=== PATIENT | male | born 1955 | race Caucasian/White ===

== ENCOUNTER 2019-11-12 01:52 | Day surgery (SDC) | payer MEDICARE, OTHER, SELFPAY ==
[2019-11-10 10:19] VITALS: BMI 31.2
--- NOTE | 2019-11-11 17:28 | P.PNAN_ITS ---
Anes - Eval Pre Procedure Procedure: Operation Date: 11/12/19 07:30 Proposed Procedures p Screening Colonoscopy - Sharath Martinez MD Date/Time: 11/11/19 17:28 Pre Op Diagnosis: Family hx of Colon Cancer Patient Data Age: 64 Gender: M Height: 1.83 m Weight: 104.5 kg Allergies Allergy/AdvReac Type Severity Reaction Status Date / Time No Known Allergies Allergy Unverified 11/10/19 10:17 Home Medications Medication Instructions Recorded Confirmed Type aspirin 81 mg tablet,delayed 81 mg PO DAILY 10/14/19 11/10/19 History release amlodipine 10 mg-benazepril 40 mg 1 cap PO DAILY #90 cap 10/16/19 11/10/19 Rx capsule febuxostat 40 mg tablet 40 mg PO DAILY #90 tablet 10/16/19 11/10/19 Rx diclofenac sodium 75 mg PO BID 11/10/19 11/10/19 History tamsulosin 0.4 mg PO HS 11/10/19 11/10/19 History Patient hx anesthesia problems: none Family hx anesthesia problems: none PMFSH Past Medical History Medical History (Updated 11/11/19 @ 17:29 by Whit Vega CRNA) Elevated PSA Essential (primary) hypertension Gout Hypercholesteremia Hyperlipidemia LDL goal <130 Hypertension Obesity Osteoarthritis Other detention (current) drug therapy Surgical History Surgical History H/O cataract extraction History of hip replacement Hx of colonoscopy Hx of sinus surgery S/P lens implant Social History Social History Smoking status: Never smoker Alcohol intake: current Exam Day of Procedure 11/11/19 17:28
[2019-11-12 06:13] VITALS: BP 149/96; PULSE 84; RESP 20; TEMP 36.9; O2SAT 98
[2019-11-12] MEDS: LACTATED RINGERS 1,000 ML 150 ML IV CONT (06:17)
--- NOTE | 2019-11-12 06:33 | P.PNAN_ITS ---
Anes - Eval Final PreProcedure Day of Procedure 11/12/19 06:33 Patient weight: obese Heart: regular rate and rhythm Lungs: clear to auscultation Airway: Mallampati scale class II Neurological: alert and oriented Last oral intake: >/= 8 hours ASA classification: III Emergent: no Anesthetic plan: proceed Anesthesia type and monitoring: general GIVS and standard monitoring Informed Consent: The patient's anesthetic plan and its attendant risks and b enefits were discussed with the patient/family/POA. Questions were solicited and answers provided to the satisfaction of the patient/family/POA.
--- NOTE | 2019-11-12 07:59 | P.CONGI_ITS ---
Assessment and Plan Additional Plan This is a 64-year-old white male patient seen in evaluation at the request of Dr. Travis. Patient presents for screening colonoscopy. His current weight appetite bowel movements are normal. He denies any blood in his stools. He denies abdominal pain. His weight has remained stable. Family history is significant his father had colon cancer. Last colonoscopy 5 years ago was unremarkable. Past medical history is significant for hypertension. And arthritis. Medications include amlodipine. Diclofenac. Tamsulosin. Is no stated drug allergies. Physical exam reveals him to be alert. Oriented x3. HEENT exam unremarkable. Lungs are clear to auscultation and percussion. Heart is without murmur or extra sounds. Abdominal exam bowel sounds are present soft nontender with no organomegaly. Digital external rectal exam normal. Impression 1. Family history of colon cancer in father. Plan is for screening colonoscopy. He will consider this at 5 year intervals. GI Consult Note Consult date/time: 11/12/19 07:59 HPI: Bienvenido Arauz is a 64 year old male [facility] Past Medical History Medical History (Updated 11/11/19 @ 17:29 by Whit Vega CRNA) Elevated PSA Essential (primary) hypertension Gout Hypercholesteremia Hyperlipidemia LDL goal <130 Hypertension Obesity Osteoarthritis Other intermediate (current) drug therapy Surgical History Surgical History H/O cataract extraction History of hip replacement Hx of colonoscopy Hx of sinus surgery S/P lens implant Social History Social History Smoking status: Never smoker Alcohol intake: current Meds Home Medications and Allergies Home Medications Medication Instructions Recorded Confirmed Type aspirin 81 mg tablet,delayed 81 mg PO DAILY 10/14/19 11/10/19 History release amlodipine 10 mg-benazepril 40 mg 1 cap PO DAILY #90 cap 10/16/19 11/10/19 Rx capsule febuxostat 40 mg tablet 40 mg PO DAILY #90 tablet 10/16/19 11/10/19 Rx diclofenac sodium 75 mg PO BID 11/10/19 11/10/19 History tamsulosin 0.4 mg PO HS 11/10/19 11/10/19 History Allergies Allergy/AdvReac Type Severity Reaction Status Date / Time No Known Allergies Allergy Verified 11/12/19 06:10 Vital Signs Vital Signs - 24 hr 11/12/19 06:13 Temperature 36.9 C Pulse Rate 84 Respiratory Rate 20 Blood Pressure 149/96 H Pulse Oximetry 98
[2019-11-12 08:01] VITALS: BP 129/87; PULSE 74; RESP 22; O2SAT 100
[2019-11-12 08:11] VITALS: BP 132/86; PULSE 63; RESP 20; O2SAT 99
[2019-11-12 08:21] VITALS: BP 134/88; PULSE 66; RESP 18; O2SAT 98
== END 2019-11-12 08:45 | disposition home or self-care (01) ==
PROVIDERS: PCP Internal Medicine; Visit Provider Internal Medicine Gastroenterology
PROC: 0DJD8ZZ Inspection of Lower Intestinal Tract, Via Natural or Artificial Opening Endoscopic (ICD-10-PCS; CPT 45378; principal; 2019-11-12 07:30)
DX: Z12.11 Encounter for screening for malignant neoplasm of colon (principal); K57.30 Diverticulosis of large intestine without perforation or abscess without bleeding; K64.8 Other hemorrhoids; Z80.0 Family history of malignant neoplasm of digestive organs; I10 Essential (primary) hypertension; E78.5 Hyperlipidemia, unspecified; M10.9 Gout, unspecified; M19.90 Unspecified osteoarthritis, unspecified site; E66.9 Obesity, unspecified; Z68.30 Body mass index [BMI] 30.0-30.9, adult; Z79.82 Long term (current) use of aspirin
CPT/HCPCS: G0105; J2704; J7120

== ENCOUNTER 2019-11-26 06:34 | Outpatient (CLI) | payer MEDICARE, SELFPAY ==
[2019-11-26 08:25] LABS: Prostate Specific Antigen 3.4 ng/mL (< OR = 4.0)
== END 2019-11-26 06:35 | disposition home or self-care (01) ==
PROVIDERS: PCP Internal Medicine
DX: R97.20 Elevated prostate specific antigen [PSA] (principal)
CPT/HCPCS: 36415; 84153

== ENCOUNTER 2020-04-05 06:35 | Outpatient (CLI) | payer MEDICARE, OTHER, SELFPAY ==
[2020-04-05 07:24] LABS: Alanine Aminotransferase 54 U/L (4-50); Albumin Level 4.6 g/dL (3.5-5.1); Alkaline Phosphatase 67 U/L (38-126); Aspartate Amino Transferase 36 U/L (17-59); Bilirubin,Total 0.6 mg/dL (0.2-1.3); Blood Urea Nitrogen 19 mg/dL (9-20); Calcium 9.3 mg/dL (8.4-10.2); Carbon Dioxide 26 mmol/L (22-30); Chloride 104 mmol/L (98-107); Cholesterol 187 mg/dL (0-200); Estimated Glomerular Filt Rate > 60; Glucose 111 mg/dL (75-110); HDL Direct 50 mg/dL; Potassium 4.1 mmol/L (3.4-5.0); Sodium 137 mmol/L (137-145); Triglycerides 59 mg/dL (<150)
[2020-04-05 07:35] LABS: LDL Cholesterol Direct 107 mg/dL
[2020-04-05 09:21] LABS: Prostate Specific Antigen 4.9 ng/mL (< OR = 4.0)
== END 2020-04-05 06:36 | disposition home or self-care (01) ==
PROVIDERS: PCP Internal Medicine; Visit Provider Nurse Practitioner
DX: Z79.899 Other long term (current) drug therapy (principal); I10 Essential (primary) hypertension; R97.20 Elevated prostate specific antigen [PSA]
CPT/HCPCS: 36415; 80053; 80061; 84153

== ENCOUNTER 2020-09-29 09:24 | Outpatient (CLI) | payer MEDICARE, SELFPAY ==
[2020-09-29 10:12] LABS: Anion Gap 8 mmol/L (8-16); Blood Urea Nitrogen 21 mg/dL (9-20); Calcium 10.1 mg/dL (8.4-10.2); Carbon Dioxide 29 mmol/L (22-30); Chloride 104 mmol/L (98-107); Cholesterol 207 mg/dL (0-200); Estimated Glomerular Filt Rate > 60; Glucose 106 mg/dL (75-110); HDL Direct 64 mg/dL; Potassium 4.3 mmol/L (3.4-5.0); Sodium 141 mmol/L (137-145); Triglycerides 74 mg/dL (<150); Uric Acid 5.4 mg/dL (3.5-8.5)
[2020-09-29 10:23] LABS: LDL Cholesterol Direct 114 mg/dL
[2020-09-29 11:13] LABS: Prostate Specific Antigen 3.5 ng/mL (< OR = 4.0)
== END 2020-09-29 09:25 | disposition home or self-care (01) ==
PROVIDERS: PCP Internal Medicine; Visit Provider Internal Medicine
DX: M10.9 Gout, unspecified (principal); R97.20 Elevated prostate specific antigen [PSA]; I10 Essential (primary) hypertension; E78.5 Hyperlipidemia, unspecified
CPT/HCPCS: 36415; 80048; 80061; 84153; 84550

== ENCOUNTER 2020-12-29 06:37 | Outpatient (CLI) | payer MEDICARE, SELFPAY | END 2020-12-29 06:38 | disposition home or self-care (01) | PROVIDERS: PCP Internal Medicine | DX: R97.20 Elevated prostate specific antigen [PSA] (principal) | CPT/HCPCS: 36415; 84153 ==

== ENCOUNTER 2021-04-25 06:33 | Outpatient (CLI) | payer MEDICARE, OTHER, SELFPAY ==
[2021-04-25 07:30] LABS: Alanine Aminotransferase 41 U/L (4-50); Albumin Level 4.4 g/dL (3.5-5.1); Alkaline Phosphatase 61 U/L (38-126); Anion Gap 9 mmol/L (8-16); Aspartate Amino Transferase 27 U/L (17-59); Bilirubin,Total 0.7 mg/dL (0.2-1.3); Blood Urea Nitrogen 15 mg/dL (9-20); Calcium 9.4 mg/dL (8.4-10.2); Carbon Dioxide 23 mmol/L (22-30); Chloride 108 mmol/L (98-107); Cholesterol 197 mg/dL (0-200); Estimated Glomerular Filt Rate > 60; Glucose 110 mg/dL (65-110); HDL Direct 61 mg/dL; Potassium 4.4 mmol/L (3.4-5.0); Sodium 140 mmol/L (137-145); Triglycerides 75 mg/dL (<150)
[2021-04-25 07:41] LABS: LDL Cholesterol Direct 104 mg/dL
[2021-04-25 11:32] LABS: Prostate Specific Antigen 4.4 ng/mL (< OR = 4.0)
== END 2021-04-25 06:34 | disposition home or self-care (01) ==
PROVIDERS: PCP Internal Medicine; Visit Provider Nurse Practitioner
DX: E78.5 Hyperlipidemia, unspecified (principal); R97.20 Elevated prostate specific antigen [PSA]
CPT/HCPCS: 36415; 80053; 80061; 84153

== ENCOUNTER 2021-11-01 06:32 | Outpatient (CLI) | payer MEDICARE, OTHER, SELFPAY ==
[2021-11-01 08:23] LABS: Alanine Aminotransferase 38 U/L (4-50); Albumin Level 4.6 g/dL (3.5-5.1); Alkaline Phosphatase 59 U/L (38-126); Anion Gap 6 mmol/L (8-16); Aspartate Amino Transferase 25 U/L (17-59); Bilirubin,Total 0.7 mg/dL (0.2-1.3); Blood Urea Nitrogen 14 mg/dL (9-20); Calcium 9.6 mg/dL (8.4-10.2); Carbon Dioxide 27 mmol/L (22-30); Chloride 106 mmol/L (98-107); Cholesterol 202 mg/dL (0-200); Estimated Glomerular Filt Rate > 60; Glucose 109 mg/dL (65-110); HDL Direct 60 mg/dL; Potassium 4.2 mmol/L (3.4-5.0); Sodium 139 mmol/L (137-145); Triglycerides 86 mg/dL (<150)
[2021-11-01 08:34] LABS: LDL Cholesterol Direct 111 mg/dL
[2021-11-01 08:53] LABS: Prostate Specific Antigen 4.6 ng/mL (< OR = 4.0)
== END 2021-11-01 06:33 | disposition home or self-care (01) ==
LOC: ANHLAB 06:36
PROVIDERS: PCP Internal Medicine; Visit Provider Internal Medicine
DX: R97.20 Elevated prostate specific antigen [PSA] (principal); I10 Essential (primary) hypertension; Z79.899 Other long term (current) drug therapy; E78.5 Hyperlipidemia, unspecified; M10.9 Gout, unspecified
CPT/HCPCS: 36415; 80053; 80061; 84153; 84550

== ENCOUNTER 2022-04-26 09:50 | Outpatient (CLI) | payer MEDICARE, OTHER, SELFPAY ==
[2022-04-26 11:16] LABS: Prostate Specific Antigen 4.4 ng/mL (< OR = 4.0)
== END 2022-04-26 09:51 | disposition home or self-care (01) ==
PROVIDERS: PCP Internal Medicine
DX: R97.20 Elevated prostate specific antigen [PSA] (principal)
CPT/HCPCS: 36415; 84153

== ENCOUNTER 2022-07-13 09:19 | Outpatient (CLI) | payer MEDICARE, OTHER, SELFPAY ==
[2022-07-13 10:01] LABS: Hemoglobin A1C 5.4 % (<5.7)
[2022-07-13 10:53] LABS: Alanine Aminotransferase 46 U/L (6-50); Albumin Level 4.5 g/dL (3.5-5.1); Alkaline Phosphatase 60 U/L (38-126); Anion Gap 9 mmol/L (8-16); Aspartate Amino Transferase 29 U/L (17-59); Bilirubin,Total 0.8 mg/dL (0.2-1.3); Blood Urea Nitrogen 16 mg/dL (9-20); Calcium 8.7 mg/dL (8.4-10.2); Carbon Dioxide 25 mmol/L (22-30); Chloride 105 mmol/L (98-107); Cholesterol 179 mg/dL (0-200); Estimated Glomerular Filt Rate > 60; Glucose 100 mg/dL (65-110); HDL Direct 64 mg/dL; Potassium 4.3 mmol/L (3.4-5.0); Sodium 139 mmol/L (137-145); Triglycerides 56 mg/dL (<150); Uric Acid 5.8 mg/dL (3.5-8.5)
[2022-07-13 10:59] LABS: LDL Cholesterol Direct 102 mg/dL
[2022-07-13 11:27] LABS: Prostate Specific Antigen 4.9 ng/mL (< OR = 4.0)
== END 2022-07-13 09:20 | disposition home or self-care (01) ==
LOC: ANHLAB 09:26
PROVIDERS: PCP Internal Medicine; Visit Provider Internal Medicine
DX: R73.01 Impaired fasting glucose (principal); E78.5 Hyperlipidemia, unspecified; R97.20 Elevated prostate specific antigen [PSA]; M10.9 Gout, unspecified; Z12.5 Encounter for screening for malignant neoplasm of prostate
CPT/HCPCS: 36415; 80053; 80061; 83036; 84153; 84550; G0103